=== PATIENT | male | born 1975 | race African-American/Black ===

== ENCOUNTER 2024-12-13 00:04 | Observation (INO) ==
--- NOTE | 2024-12-13 00:39 | Emergency Department Note ---
HPI - Abdominal Pain General Chief Complaint: Abdominal Pain Stated Complaint: UPPER ABDOMINAL PAIN Source: patient and medical record Mode of arrival: walk-in Limitations: no limitations History of Present Illness HPI narrative: A 49-year-old came into the ER [place] stating that he is having for the last 4 days with increased abdominal pain very similar to when he had pancreatitis in the past. Helical gallbladder removed secondary to the pancreatitis does have issues with his blood pressure and lipids. States he takes his medications every day without fail. Patient [place] any fever, vomiting, bowel habit changes no known ill contacts no suspicious foods patient does admit having nausea especially when the pain is severe. Patient reports his epigastric area when asked where he hurts was pain he will radiate out for the last 4 days he rated as a 9 out of 10 but currently is a 7 out of 10. Related Data Home Medications Medication Instructions Recorded Confirmed glipizide 10 mg tablet 10 mg PO BID 04/13/24 05/13/24 insulin glargine-yfgn 100 unit/mL 40 unit subcut DAILY 04/13/24 05/13/24 (3 mL) subcutaneous pen metformin 850 mg tablet 850 mg PO BID 04/13/24 05/13/24 olmesartan 20 mg tablet 20 mg PO DAILY 04/13/24 05/13/24 Previous Rx's Medication Instructions Recorded atorvastatin 10 mg tablet 10 mg PO DAILY dm #30 tabs 05/15/24 famotidine 40 mg tablet (Pepcid) 40 mg PO BID gerd #60 tabs 05/15/24 losartan 50 mg tablet 50 mg PO DAILY dm/htn #30 tabs 05/15/24 Allergies Allergy/AdvReac Type Severity Reaction Status Date / Time No Known Drug Allergies [facility]ergy Verified 12/13/24 00[facility]38 [facility] Medical History Acute pancreatitis GERD (gastroesophageal reflux disease) Sleep apnea Hypertension Diabetes Surgical History History of appendectomy Social History (Updated 10/01/24 @ 12:18 by Isabella Venegas APRN) Smoking status: current some day smoker Within the past year, how often did you have a drink containing alcohol: never Within the past year, how many standard drinks containing alcohol did you have on a typical day: 1 or 2 Within the past year, how often did you have six or more drinks on one occasion: never Total score: 0 Score interpretation: A score less than 4 is consistent with normal alcohol consumption. Non-prescribed substance use: cannabis (any form) Problems where you live: no known problems In the past 12 months, utilities in danger of being shut off: no In past 12 months, lack of transportation kept you from medical appts, meetings, work, or getting things needed for daily living: No Highest level of school completed/degree received: decline to answer Little interest or pleasure in doing things: not at all Feeling down, depressed, or hopeless: not at all Feel stressed/tense/nervous/anxious/difficulty sleeping: decline to answer Exam Exam: Patient in fowlers position at upon entering room for exam. Constitutional: normal general appearance, distress noted (moderate), abnormal body habitus (obese), no limitations and alert Vital Signs - 24 hr 12/13/24 00:15 12/13/24 01:15 12/13/24 02:09 Temperature 98.3 F 98.3 F 98.3 F Pulse Rate 86 84 88 Respiratory Rate 20 19 18 Blood Pressure 175/92 184/97 180/82 Pulse Oximetry 96 97 96 Oxygen Delivery Me thod Room Air Room Air Room Air 12/13/24 03:00 Temperature 98.3 F Pulse Rate 83 Respiratory Rate 18 Blood Pressure 203/99 Pulse Oximetry 95 [facility] Vital Signs - 24 hr 05/14/24 16:00 05/14/24 20:00 05/15/24 00:00 Temperature 97.8 F 98.0 F 97.9 F Pulse Rate [Right] 73 67 69 Respiratory Rate 20 20 21 Blood Pressure Blood Pressure [Le ft Arm] 159/78 181/105 168/89 Pulse Oximetry 96 97 97 Oxygen Delivery Me thod Room Air Room Air Room Air 05/15/24 04:00 05/15/24 08:00 05/15/24 09:49 Temperature 97.8 F 97.8 F Pulse Rate [Right] 75 74 Respiratory Rate 20 16 Blood Pressure 162/86 Blood Pressure [Le ft Arm] 168/77 162/86 Pulse Oximetry 95 95 [facility] Room Air 05/15/24 12:00 Temperature 97.6 F Pulse Rate [Right] 70 Respiratory Rate 16 Blood Pressure Blood Pressure [Le ft Arm] 150/70 Pulse Oximetry 96 Oxygen Delivery Me thod HENMT: normocephalic, head/scalp atraumatic, hearing grossly normal bilaterally, external ears normal, TMs abnormal and oral mucous membranes normal Eyes: PERRL, EOMs intact bilaterally, conjunctivae normal, no scleral icterus, papilledema noted and alignment normal Neck/C-Spine: visual inspection normal, trachea midline, cervical spine nontender, cervical full ROM noted, supple, no meningeal signs and thyroid normal Lymph: no lymphadenopathy noted and no lymphedema noted Chest: inspection of chest normal and palpation of chest normal Respiratory: breath sounds unequal (Diminished bases), normal respiratory effort, clear to auscultation bilaterally, no wheezes, no rales, no retractions and no use of accessory muscles Cardiovascular: normal heart rate noted, regular rhythm noted, no gallop, no rub, no murmur, no JVD, no clicks, peripheral pulses 2+ throughout and no bruits noted Gastrointestinal: abdomen normal to inspection, abdomen soft to palpation, nontender to palpation, nondistended, normoactive bowel sounds, hepatosplenomegaly noted, no masses, no pulsatile mass, no ascites and no hernia Genitourinary: no CVA tenderness and bladder normal to palpation Back/Pelvis: no thoracic spine tenderness, no lumbar spine tenderness, thoracic spine ROM abnormal and lumbar spine ROM abnormal Extremities: normal to palpation, no tenderness, full ROM, no joint enlargement and no deformity Neurology: crimper assembler II-XII intact, no movement abnormality noted, no focal motor deficit noted, no sensory deficits noted, deep tendon reflexes 2+ bilaterally, gait abnormality noted (antalgic), speech normal, coordination normal, no pronator drift noted, no fasciculations noted and GCS normal Psychiatry: Mental Status Exam documented within this Exam's Psych section mental status grossly normal, oriented x3, thought process normal, cooperative, affect normal, psychomotor activity normal and memory normal Feel stressed/tense/nervous/anxious/difficulty sleeping: decline to answer Skin: skin color abnormal, no rash, no lesions, no ecchymosis noted, no wounds, no lacerations, skin turgor abnormal Reports (tenting), no jaundice, no petechiae, no mottling, nails abnormality noted and alopecia noted Course Course Hospital Course: Patient's pain improved over hospitalization went from a 7 out of 10 and her to a 4-5 out of 10 with medication. Patient remained comfortable although did require second dose of morphine when the pain creased around 4 AM patient tolerated fluids very well and agreed to go to the floor for further hydration and pain medications as warranted Vital Signs Vital signs: Vital Signs Temperature 98.3 F 12/13/24 00:15 Pulse Rate 86 12/13/24 00:15 Respiratory Rate 20 12/13/24 00:15 Blood Pressure 175/92 12/13/24 00:15 Pulse Oximetry 96 12/13/24 00:15 Oxygen Delivery Method Room Air 12/13/24 00:15 Temperature 98.3 F 12/13/24 03:00 Pulse Rate 83 12/13/24 03:00 Respiratory Rate 18 12/13/24 03:00 Blood Pressure 203/99 12/13/24 03:00 Pulse Oximetry 95 12/13/24 03:00 Oxygen Delivery Method Room Air 12/13/24 03:00 MDM - Abdominal Pain MDM Narrative Medical decision making narrative: Ileus, calculus of kidney, constipation, diverticulitis, gastroenteritis, pancreatitis, abdominal pain, UTI Differential Diagnosis Differential diagnosis: Likely abdominal pain, calculus of kidney, constipation, diverticulitis, gastroenteritis, pancreatitis and small bowel obstruction Lab Data Attestation: I reviewed the patient's lab results. Labs: Lab Results 12/13/24 12/13/24 Range/Units 00:25 02:45 WBC 10.0 H (3.7-9.6) K/uL RBC 5.3 (4.40-5.80) M/uL Hgb 14.2 (14.0-17.4) gm/dL Hct 43.5 (41.3-50.1) % MCV 82.9 (81.9-96.5) fl MCH 27.1 L (27.6-33.7) pg MCHC 32.7 L (33.0-35.7) g/dl RDW 15.4 H (11.0-14.8) % Plt Count 272 (142-355) K/uL MPV 8.8 (6.0-10.4) fl Gran % 54.8 (49.1-73.1) % Lymph % (Auto) 26.5 (17.6-39.05) % [place] % (Auto) 13.8 H (4.5-10.7) % Eos % (Auto) 3.7 (0.0-4.0) % Baso % (Auto) 1.2 (0.0-1.3) Lymph # (Auto) 2.6 (0.8-2.9) [place] # (Auto) 1.4 H (0.2-0.8) Eos # (Auto) 0.4 H (0.0-0.3) Baso # (Auto) 0.1 (0.0-0.1) Absolute Gran (auto) 5.5 (2.0-6.2) Sodium 137 (136-145) mmol/L Potassium 4.3 (3.6-5.2) mmol/L Chloride 103.0 (98-107) mmol/L Carbon Dioxide 30 (21-32) mmol/L Anion Gap 4.0 (4-14) mEq/L BUN 13 (7-18) mg/dL Creatinine 1.4 H (0.6-1.3) mg/dL Estimated GFR 62.4 (>59.9) Glucose 205 H (70-110) mg/dL Lactic Acid 1.6 H (0.27-1.43) mmol/L Calcium 8.8 (8.5-10.1) mg/dL Total Bilirubin 0.28 (0.0-1.0) mg/dL AST 32 (15-37) U/L ALT 45 (30-65) U/L Alkaline Phosphatase 93 (50-136) U/L Troponin I High Sens 7.20 (4.0-60.4) ng/L Total Protein 8.2 (6.4-8.2) g/dL Albumin 3.5 (3.4-5.0) g/dL Lipase 237.0 H (16.0-77.0) U/L Urine Color Yellow (STRAW/YELL.) Urine Appearance Clear (CLEAR) Ur Specific [place] 1.015 (1.001-1.035) Urine Protein Trace (NEGATIVE) Urine Glucose (UA) 2+ (NORMAL) Urine Ketones Negative (NEGATIVE) Urine Occult Blood Negative (NEG - TRACE) Urine Nitrite Negative (NEGATIVE) Urine Bilirubin Negative (NEGATIVE) Urine Urobilinogen Normal (NORMAL) Ur Leukocyte Esterase Negative (NEGATIVE) Urine RBC 0 - 2 (0 - 5) Urine WBC Negative ( 0 - 5) Ur Squamous Epith Cells Negative (Negative) Urine Bacteria Negative (Negative) Fluid pH 7.0 (5 - 9) Urine Opiates Screen Neg. (NEGATIVE) Urine Methadone Screen Neg. (NEGATIVE) Barbiturate Screen Neg. (NEGATIVE) Ur Phencyclidine Scrn Neg. (NEGATIVE) Amphetamines Screen Neg. (NEGATIVE) U Benzodiazepines Scrn Neg. (NEGATIVE) Urine Cocaine Screen Neg. (NEGATIVE) U Marijuana (THC) Screen Pos. (NEGATIVE) ECG Data Attestation: I have reviewed the pertinent ECG results. Prior ECG tracings: available for review Interpretation: EKG-sinus rhythm, rate 85, RR 74, SD 155, early repolarization pattern Discharge Plan Discharge Patient Disposition: Admitted As Observation Condition: Stable Chief Complaint: Abdominal Pain Clinical Impression: Hypertension, GERD (gastroesophageal reflux disease), Pancreatitis, Abdominal pain Prescriptions: No Action losartan 50 mg tablet 50 mg PO DAILY Qty: 30 0RF atorvastatin 10 mg tablet 10 mg PO DAILY Qty: 30 0RF famotidine [Pepcid] 40 mg tablet 40 mg PO BID Qty: 60 0RF glipizide 10 mg tablet 10 mg PO BID Patient Comments: TAKE ONE TABLET BY MOUTH TWICE DAILY insulin glargine-yfgn 100 unit/mL (3 mL) insulin pen 40 unit SUBCUT DAILY Patient Comments: INJECT 40 UNITS SUBCUTANEOUSLY DAILY metformin 850 mg tablet 850 mg PO BID Patient Comments: TAKE ONE TABLET BY MOUTH TWICE DAILY WITH A MEAL olmesartan 20 mg tablet 20 mg PO DAILY Patient Comments: TAKE ONE TABLET BY MOUTH DAILY Print Language: Divehi Referrals: Ty Hedrick MD [Primary Care Provider] - Time of Disposition: 05:24
[2024-12-13] MEDS ORDERED: 0.9 % SODIUM CHLORIDE 1000 ML 1,000 ML IV SCH (00:45)
[2024-12-13] MEDS: MORPHINE SULFATE 2 MG/ML CARTRIDGE IV ONE ×2 (01:01→04:57)
[2024-12-13] MEDS: ONDANSETRON HCL/PF 4 MG/2 ML VIAL IVP ONE (01:01)
[2024-12-13] MEDS: 0.9 % SODIUM CHLORIDE 1000 ML 1,000 ML IV SCH ×2 (01:05→11:33)
[2024-12-13] MEDS: 0.9 % SODIUM CHLORIDE 1000 ML 1,000 ML IV ONE (01:18)
[2024-12-13 01:38] LABS: Potassium 4.3 mmol/L (3.6-5.2)
[2024-12-13 01:48] LABS: Basophils #(Absolute) Auto 0.1 (0.0-0.1); Basophils%(Percent) Auto 1.2 (0.0-1.3); Eosinophils#(Absolute)Auto 0.4 (0.0-0.3); Eosinophils%(Percent) Auto 3.7 % (0.0-4.0); Granulocytes % - Auto 54.8 % (49.1-73.1); Granulocytes#(Absolute)- Auto 5.5 (2.0-6.2); Hematocrit 43.5 % (41.3-50.1); Mean Corpuscular Volume 82.9 fl (81.9-96.5); Monocytes #(Absolute)- Auto 1.4 (0.2-0.8); Monocytes %(Percent)- Auto 13.8 % (4.5-10.7); Platelet Count 272 K/uL (142-355)
[2024-12-13 02:49] LABS: Specific Gravity Urine 1.015 (1.001-1.035); Urine Appearance CLEAR (CLEAR); Urine Blood NEGATIVE (NEG - TRACE); Urine Color YELLOW (STRAW/YELL.); Urine Urobilinogen Normal (NORMAL)
[2024-12-13 02:59] LABS: Amphetamine Screen Urine NEG. (NEGATIVE); Cannabinoid Screen Urine POS. (NEGATIVE); Cocaine Screen Urine NEG. (NEGATIVE); Methadone Screen Urine NEG. (NEGATIVE); Opiate Screen Urine NEG. (NEGATIVE)
[2024-12-13 03:00] LABS: Ur. Squamous Epithelial Cell Negative (Negative)
[2024-12-13] MEDS ORDERED: MORPHINE SULFATE 4 MG/ML CARTRIDGE ONE (07:58)
[2024-12-13] MEDS: MORPHINE SULFATE 4 MG/ML CARTRIDGE IVP ONE (08:06)
[2024-12-13 10:38] LABS: Basophils #(Absolute) Auto 0.1 (0.0-0.1); Basophils%(Percent) Auto 1.1 (0.0-1.3); Eosinophils#(Absolute)Auto 0.4 (0.0-0.3); Eosinophils%(Percent) Auto 4.4 % (0.0-4.0); Granulocytes#(Absolute)- Auto 4.5 (2.0-6.2); Hematocrit 43.6 % (41.3-50.1); Mean Corpuscular Volume 83.3 fl (81.9-96.5); Monocytes #(Absolute)- Auto 1.1 (0.2-0.8); Monocytes %(Percent)- Auto 13.4 % (4.5-10.7); Platelet Count 241 K/uL (142-355); White Blood Count 8.4 K/uL (3.7-9.6)
[2024-12-13 10:54] LABS: Potassium 4.2 mmol/L (3.6-5.2)
[2024-12-13] MEDS ORDERED: ONDANSETRON HCL/PF 4 MG/2 ML VIAL INJ PRN (11:00)
[2024-12-13] MEDS: ENOXAPARIN SODIUM 40 MG/0.4 ML SYRINGE SUBQ SCH (11:34)
[2024-12-13] MEDS: PANTOPRAZOLE SODIUM 40 MG VIAL IVP SCH (11:34)
--- NOTE | 2024-12-13 12:22 | History & Physical Report ---
H&P: HPI History of Present Illness Chief complaint: PANCREATITIS,DEHYDRATION,ABDOMINAL PAIN Narrative: Mr. Delgado was admitted on 12/12/24 from the ED with the complaint of bilater upper quadrant abdominal pain. Patient does have history of diabetes as well as acute exacerbations of pancreatitis. CBC CMP within normal limits. Lipase on admit was 237 down to 79 this morning. He does report compliance with medication at home. Currently NPO will advance diet as tolerated Review of Systems Status of ROS 10 or more systems reviewed and unremark able except as noted in history and below Constitutional Denies: fever, chills, change in weight, fatigue or malaise Eyes Denies: change in vision, blurry vision, blind spots, eye discomfort or eye discharge Ears, nose, mouth, and throat Denies: throat pain, neck pain, throat swelling, difficulty swallowing, hoarseness or swelling of lips/tongue Cardiovascular Denies: chest pain, palpitations, edema, swelling of feet/ankles, lightheadedness or shortness of breath with exertion Respiratory Denies: shortness of breath, cough, wheezing, stridor, pain on inspiration, change in phlegm color or coughing up blood Gastrointestinal Reports: abdominal pain and nausea; Denies: vomiting, coffee grounds in vomit, heartburn, diarrhea, constipation, bloating, belching or painful bowel movements Genitourinary Denies: painful urination, urinary frequency, urinary urgency, blood in urine, testicular pain or scrotal swelling Musculoskeletal Denies: back pain, neck pain, extremity pain or extremity swelling Integumentary/Breast Denies: rash, skin tenderness, non-healing lesion or changes in skin color Neurological Denies: headache, numbness in extremities, weakness in extremities, lack of coordination, dizziness, vertigo or confusion Psychiatric Denies: anxiety, irritability, suicidal ideation or homicidal ideation Endocrine Reports: excessive thirst; Denies: fatigue, excessive sweating or flushing Hematologic/Lymphatic Denies: easy bruising, easy bleeding or enlarged lymph nodes Allergic/Immunologic Denies: hives, throat swelling, tongue swelling or facial swelling PFSH PFSH Medical History (Updated 12/13/24 @ 12:28 by Jensen Mcconnell NP) Acute pancreatitis GERD (gastroesophageal reflux disease) Sleep apnea Hypertension Diabetes Surgical History (Updated 12/13/24 @ 12:25 by Jensen Mcconnell NP) Hx laparoscopic cholecystectomy History of appendectomy Social History (Updated 10/01/24 @ 12:18 by Isabella Venegas APRN) Smoking status: current some day smoker Within the past year, how often did you have a drink containing alcohol: never Within the past year, how many standard drinks containing alcohol did you have on a typical day: 1 or 2 Within the past year, how often did you have six or more drinks on one occasion: never Total score: 0 Score interpretation: A score less than 4 is consistent with normal alcohol consumption. Non-prescribed substance use: cannabis (any form) Problems where you live: no known problems In the past 12 months, utilities in danger of being shut off: no In past 12 months, lack of transportation kept you from medical appts, meetings, work, or getting things needed for daily living: No Highest level of school completed/degree received: high school Little interest or pleasure in doing things: not at all Feeling down, depressed, or hopeless: not at all Feel stressed/tense/nervous/anxious/difficulty sleeping: decline to answer Meds Home Medications and Allergies Home Medications Medication Instructions Recorded Confirmed Type glipizide 10 mg tablet 10 mg PO BID 04/13/24 12/13/24 History insulin glargine-yfgn 100 unit/mL 40 unit subcut DAILY 04/13/24 12/13/24 History (3 mL) subcutaneous pen metformin 850 mg tablet 850 mg PO BID 04/13/24 12/13/24 History olmesartan 20 mg tablet 20 mg PO DAILY 04/13/24 12/13/24 History atorvastatin 10 mg tablet 10 mg PO DAILY dm #30 tabs 05/15/24 12/13/24 Rx famotidine 40 mg tablet (Pepcid) 40 mg PO BID gerd #60 tabs 05/15/24 12/13/24 Rx losartan 50 mg tablet 50 mg PO DAILY dm/htn #30 tabs 05/15/24 12/13/24 Rx gabapentin 300 mg capsule 300 mg PO NIGHTLY 12/13/24 12/13/24 History pen needle, diabetic 31 gauge x 12/13/24 12/13/24 History 5/16" (Sure Comfort Pen Needle) Allergies Allergy/AdvReac Type Severity Reaction Status Date / Time No Known Drug Allergies Allergy Verified 12/13/24 00:38 Exam Constitutional: normal general appearance and no apparent distress Vital Signs - 24 hr 12/13/24 00:15 12/13/24 01:15 12/13/24 02:09 Temperature 98.3 F 98.3 F 98.3 F Pulse Rate 86 84 88 Pulse Rate [Left B rachial] Respiratory Rate 20 19 18 Blood Pressure 175/92 184/97 180/82 Blood Pressure [Le ft Arm] Pulse Oximetry 96 97 96 Oxygen Delivery Me thod Room Air Room Air Room Air 12/13/24 03:00 12/13/24 04:00 12/13/24 05:00 Temperature 98.3 F 98.3 F Pulse Rate 83 83 80 Pulse Rate [Left B rachial] Respiratory Rate 18 15 18 Blood Pressure 203/99 152/76 163/78 Blood Pressure [Le ft Arm] Pulse Oximetry 95 95 95 Oxygen Delivery Me thod Room Air Room Air Room Air 12/13/24 08:07 12/13/24 10:01 Temperature 97.7 F Pulse Rate 80 Pulse Rate [Left B rachial] 74 Respiratory Rate 20 Blood Pressure 163/78 Blood Pressure [Le ft Arm] 168/72 Pulse Oximetry 94 L Oxygen Delivery Oh thod Room Air HENMT: normocephalic, head/scalp atraumatic, hearing grossly normal bilaterally and external ears normal Eyes: PERRL, EOMs intact bilaterally, conjunctivae normal, no scleral icterus, no papilledema and normal visual brown by confrontation Neck/C-Spine: visual inspection normal, trachea midline, cervical spine nontender, cervical full ROM noted and supple Lymph: no lymphadenopathy noted and no lymphedema noted Chest: inspection of chest normal Respiratory: breath sounds equal bilaterally, normal respiratory effort and clear to auscultation bilaterally Cardiovascular: normal heart rate noted and regular rhythm noted Gastrointestinal: abdomen normal to inspection and abdomen soft to palpation mild tenderness BL upper quads Genitourinary: no CVA tenderness and bladder normal to palpation Back/Pelvis: spine normal to inspection, no thoracic spine tenderness, no lumbar spine tenderness, thoracic spine ROM normal and lumbar spine ROM normal Extremities: normal to inspection, normal to palpation, no tenderness, full ROM, no joint enlargement and no deformity Neurology: manager sas II-XII intact, no movement abnormality noted, no focal motor deficit noted, no sensory deficits noted, deep tendon reflexes 2+ bilaterally, gait normal, speech normal, coordination normal, no pronator drift noted, no fasciculations noted and GCS normal Psychiatry: oriented x3, thought process normal, cooperative and affect normal Skin: skin color normal Assessment and Plan Assessment and Plan (1) Acute pancreatitis: Assessment and Plan: NPO status NS @150ml/hr Trend enzymes Qualifiers: Pancreatitis type: unspecified pancreatitis type Acute pancreatitis complication: no infection or necrosis Qualified Code(s): K85.90 - Acute pancreatitis without necrosis or infection, unspecified Code(s): K85.90 - Acute pancreatitis without necrosis or infection, unspecified (2) Diabetes mellitus type 2 with complications: Code(s): E11.8 - Type 2 diabetes mellitus with unspecified complications Plan Accuchecks AC HS Results Labs Labs: CBC 12/13/24 12/13/24 Range/Units 00:25 10:28 WBC 10.0 H 8.4 (3.7-9.6) K/uL RBC 5.3 5.2 (4.40-5.80) M/uL Hgb 14.2 14.3 (14.0-17.4) gm/dL Hct 43.5 43.6 (41.3-50.1) % Plt Count 272 241 (142-355) K/uL Gran % 54.8 54.0 (49.1-73.1) % Lymph % (Auto) 26.5 27.1 (17.6-39.05) % [place] % (Auto) 13.8 H 13.4 H (4.5-10.7) % Eos % (Auto) 3.7 4.4 H (0.0-4.0) % Baso % (Auto) 1.2 1.1 (0.0-1.3) Lymph # (Auto) 2.6 2.3 (0.8-2.9) [place] # (Auto) 1.4 H 1.1 H (0.2-0.8) Eos # (Auto) 0.4 H 0.4 H (0.0-0.3) Baso # (Auto) 0.1 0.1 (0.0-0.1) Absolute Gran (auto) 5.5 4.5 (2.0-6.2) CMP 12/13/24 12/13/24 00:25 10:28 Sodium 137 137 Potassium 4.3 4.2 Chloride 103.0 103.0 Carbon Dioxide 30 30 BUN 13 9 Creatinine 1.4 H 1.1 Glucose 205 H 135 H Calcium 8.8 8.1 L Liver Function 12/13/24 12/13/24 Range/Units 00:25 10:28 Total Bilirubin 0.28 0.32 (0.0-1.0) mg/dL AST 32 24 (15-37) U/L ALT 45 40 (30-65) U/L Alkaline Phosphatase 93 89 (50-136) U/L Albumin 3.5 3.1 L (3.4-5.0) g/dL Urine 12/13/24 02:45 Urine Color Yellow Urine Appearance Clear Ur Specific [place] 1.015 Urine Protein Trace Urine Glucose (UA) 2+
[2024-12-13] MEDS: MORPHINE SULFATE 2 MG/ML CARTRIDGE IV PRN (15:54)
[2024-12-13] MEDS: LOSARTAN POTASSIUM 50 MG TABLET PO SCH (20:59)
[2024-12-14 04:24] VITALS: RESP 19
[2024-12-14 08:11] LABS: Potassium 4.2 mmol/L (3.6-5.2)
--- NOTE | 2024-12-14 08:17 | Discharge Summary ---
DS: Providers Provider Date of admission: 12/13/24 05:30 Primary care physician: Ty Hedrick MD DS: Diagnosis Discharge Diagnosis (1) Acute pancreatitis: Qualifiers: Acute pancreatitis complication: no infection or necrosis Pancreatitis type: unspecified pancreatitis type Qualified Code(s): K85.90 - Acute pancreatitis without necrosis or infection, unspecified (2) Diabetes mellitus type 2 with complications: DS: Summary Hospital Course Hospital Course: Mr. Delgado was admitted on 12/12/24 from the ED with the complaint of bilateral upper quadrant abdominal pain. Patient does have history of diabetes as well as acute on chronic exacerbations of pancreatitis. CBC CMP within normal limits during his stay. Lipase on admit was 237 and did trend to normal. Diet was advanced to regular and he did not require further pain management. Patient was discharged home on 12/14/24. Time spent discussing smoking cessation with patient: more than 10 minutes Status at Discharge Overall status at discharge: patient is back to baseline Time Spent with Patient Time attestation: Total time spent providing and/or coordinating discharge services: Time spent: greater than 30 minutes Exam Constitutional: normal general appearance and no apparent distress Vital Signs - 24 hr 12/13/24 08:23 12/13/24 10:01 12/13/24 12:00 Temperature 97.7 F 98.2 F Pulse Rate [Left B rachial] 74 70 Respiratory Rate 20 19 Blood Pressure [Le ft Arm] 168/72 173/99 Pulse Oximetry 94 L 96 Oxygen Delivery Me thod Room Air Room Air Room Air 12/13/24 16:00 12/13/24 20:00 12/14/24 00:00 Temperature 97.4 F L 98.2 F 98.6 F Pulse Rate [Left B rachial] 70 77 78 Respiratory Rate 19 17 20 Blood Pressure [Le ft Arm] 160/80 168/91 173/77 Pulse Oximetry 94 L 95 96 Oxygen Delivery Me thod Room Air Room Air Room Air 12/14/24 04:23 Temperature 98.0 F Pulse Rate [Left B rachial] 89 Respiratory Rate 19 Blood Pressure [Le ft Arm] 184/70 Pulse Oximetry 93 L Oxygen Delivery Me thod Room Air HENMT: normocephalic, head/scalp atraumatic, hearing grossly normal bilaterally and external ears normal Eyes: PERRL, EOMs intact bilaterally, conjunctivae normal, no scleral icterus, no papilledema and normal visual brown by confrontation Neck/C-Spine: visual inspection normal, trachea midline, cervical spine nontender, cervical full ROM noted and supple Lymph: no lymphadenopathy noted and no lymphedema noted Chest: inspection of chest normal Respiratory: breath sounds equal bilaterally, normal respiratory effort and clear to auscultation bilaterally Cardiovascular: normal heart rate noted and regular rhythm noted Gastrointestinal: abdomen normal to inspection, abdomen soft to palpation and nontender to palpation Genitourinary: no CVA tenderness and bladder normal to palpation Back/Pelvis: spine normal to inspection, no thoracic spine tenderness, no lumbar spine tenderness, thoracic spine ROM normal and lumbar spine ROM normal Extremities: normal to inspection, normal to palpation, no tenderness, full ROM, no joint enlargement and no deformity Neurology: student assistant II-XII intact, no movement abnormality noted, no focal motor deficit noted, no sensory deficits noted, deep tendon reflexes 2+ bilaterally, gait normal, speech normal, coordination normal, no pronator drift noted, no fasciculations noted and GCS normal Psychiatry: oriented x3, thought process normal, cooperative and affect normal Skin: skin color normal DS: Data Data Completed and Pending Labs on day of discharge: Labs from last 24 hours 12/14/24 12/14/24 12/13/24 07:11 05:20 10:28 WBC 8.4 RBC 5.2 Hgb 14.3 Hct 43.6 MCV 83.3 MCH 27.2 L MCHC 32.7 L RDW 15.2 H Plt Count 241 MPV 7.9 Gran % 54.0 Lymph % (Auto) 27.1 King % (Auto) 13.4 H Eos % (Auto) 4.4 H Baso % (Auto) 1.1 Lymph # (Auto) 2.3 King # (Auto) 1.1 H Eos # (Auto) 0.4 H Baso # (Auto) 0.1 Absolute Gran (auto) 4.5 Sodium 135 L 137 Potassium 4.2 4.2 Chloride 101.0 103.0 Carbon Dioxide 25 30 Anion Gap 9.0 4.0 BUN 8 9 Creatinine 1.1 1.1 Estimated GFR 83.3 83.3 Glucose 104 135 H Calcium 8.6 8.1 L Magnesium 2.0 Total Bilirubin 0.32 AST 24 ALT 40 Alkaline Phosphatase 89 Troponin I High Sens 9.50 B-Natriuretic Peptide 9.2 Total Protein 7.6 Albumin 3.1 L Triglycerides 54 Cholesterol 113 LDL Cholesterol 66.0 VLDL Cholesterol, Calc 11 HDL Cholesterol 40 LDL/HDL Ratio 1.7 Cholesterol/HDL Ratio 2 Amylase 63 Lipase 50.0 76.0 Preliminary micro results at discharge 12/13/24 05:35 Blood Culture - Preliminary Blood - Venous Draw (Peripheral) 12/13/24 05:40 Blood Culture - Preliminary Blood - Venous Draw (Peripheral) Discharge Plan Discharge Disposition: Home, Self-Care Condition: Stable Discharge Medications: Continued losartan 50 mg tablet 50 mg PO DAILY Qty: 30 0RF atorvastatin 10 mg tablet 10 mg PO DAILY Qty: 30 0RF famotidine [Pepcid] 40 mg tablet 40 mg PO BID Qty: 60 0RF glipizide 10 mg tablet 10 mg PO BID Patient Comments: TAKE ONE TABLET BY MOUTH TWICE DAILY insulin glargine-yfgn 100 unit/mL (3 mL) insulin pen 40 unit SUBCUT DAILY Patient Comments: INJECT 40 UNITS SUBCUTANEOUSLY DAILY metformin 850 mg tablet 850 mg PO BID Patient Comments: TAKE ONE TABLET BY MOUTH TWICE DAILY WITH A MEAL olmesartan 20 mg tablet 20 mg PO DAILY Patient Comments: TAKE ONE TABLET BY MOUTH DAILY gabapentin 300 mg capsule 300 mg PO NIGHTLY Patient Comments: TAKE ONE CAPSULE BY MOUTH AT BEDTIME (DME) pen needle, diabetic [Sure Comfort Pen Needle] 31 gauge x 5/16" needle MISCELLANEOUS Patient Comments: USE daily Discharge Orders: Discharge Order (Routine); Ordered 12/14/24 Ordered By: Jensen Mcconnell Activity: increase activity as tolerated Diet Detail: Diabetic Interventions: Discharge Assessment Last Done: 12/14/24 08:30 MED/SURG & ICU Observation Charge Sheet Last Done: 12/14/24 08:32 Patient Instructions: Pancreatitis (DC) Forms: Portal/Health Info Access Inst Follow-Ups: Ty Hedrick MD [Primary Care Provider] - 12/20/24 11:00 am Discharge Date/Time: 12/14/24 09:45
[2024-12-14 08:19] LABS: Basophils #(Absolute) Auto 0.1 (0.0-0.1); Basophils%(Percent) Auto 0.7 (0.0-1.3); Eosinophils#(Absolute)Auto 0.4 (0.0-0.3); Eosinophils%(Percent) Auto 4.5 % (0.0-4.0); Granulocytes#(Absolute)- Auto 4.6 (2.0-6.2); Hematocrit 44.5 % (41.3-50.1); Mean Corpuscular Volume 82.6 fl (81.9-96.5); Monocytes %(Percent)- Auto 11.9 % (4.5-10.7); Platelet Count 256 K/uL (142-355); White Blood Count 8.5 K/uL (3.7-9.6)
[2024-12-14 08:31] VITALS: BP 140/80; PULSE 80; TEMP 97.9
== END 2024-12-14 09:45 | disposition home or self-care (01) ==
LOC: MS 00:04 → ED 00:04 → MS 08:10
PROVIDERS: ADMIT Family Medicine; ATTEND Nurse Practitioner
DX: E86.0 Dehydration; K21.9 Gastro-esophageal reflux disease without esophagitis; Z79.899 Other long term (current) drug therapy; K85.90 Acute pancreatitis without necrosis or infection, unspecified; Z79.84 Long term (current) use of oral hypoglycemic drugs; E11.8 Type 2 diabetes mellitus with unspecified complications; G47.30 Sleep apnea, unspecified; I10 Essential (primary) hypertension; F17.200 Nicotine dependence, unspecified, uncomplicated; Z79.4 Long term (current) use of insulin

== ENCOUNTER 2025-02-22 21:49 | Observation (INO) ==
[2025-02-22] MEDS ORDERED: 0.9 % SODIUM CHLORIDE 1000 ML 1,000 ML IV SCH (22:15)
[2025-02-22] MEDS ORDERED: ONDANSETRON HCL/PF 4 MG/2 ML VIAL ONE (22:26)
[2025-02-22] MEDS ORDERED: MORPHINE SULFATE 2 MG/ML CARTRIDGE IV ONE (22:26)
[2025-02-22] MEDS: MORPHINE SULFATE 2 MG/ML CARTRIDGE IV ONE (22:28)
[2025-02-22] MEDS: ONDANSETRON HCL/PF 4 MG/2 ML VIAL IVP ONE (22:29)
[2025-02-22] MEDS: 0.9 % SODIUM CHLORIDE 1000 ML 1,000 ML IV ONE ×2 (22:43)
[2025-02-22 22:51] LABS: Basophils #(Absolute) Auto 0.1 (0.0-0.1); Eosinophils#(Absolute)Auto 0.4 (0.0-0.3); Eosinophils%(Percent) Auto 3.7 % (0.0-4.0); Granulocytes % - Auto 51.8 % (49.1-73.1); Granulocytes#(Absolute)- Auto 5.3 (2.0-6.2); Hematocrit 43.7 % (41.3-50.1); Mean Corpuscular Volume 83.3 fl (81.9-96.5); Monocytes #(Absolute)- Auto 1.3 (0.2-0.8); Monocytes %(Percent)- Auto 12.8 % (4.5-10.7); Platelet Count 285 K/uL (142-355); White Blood Count 10.2 K/uL (3.7-9.6)
[2025-02-22 23:01] LABS: Potassium 4.1 mmol/L (3.6-5.2)
[2025-02-22] MEDS ORDERED: 0.9 % SODIUM CHLORIDE MB+ 100 ML IV ONE (23:53)
[2025-02-22] MEDS ORDERED: PIPERACILLIN SODIUM/TAZOBACTAM 3.375 GM VIAL IV ONE (23:53)
[2025-02-22] MEDS: PIPERACILLIN/TAZOBACTAM 3.375 3.375 GM in 0.9 % SODIUM CHLORIDE MB+ 100 ML IV ONE (23:54)
--- NOTE | 2025-02-23 02:29 | Emergency Department Note ---
HPI - Abdominal Pain General Chief Complaint: Abdominal Pain Stated Complaint: stomach pains Source: patient Mode of arrival: walk-in Limitations: no limitations History of Present Illness HPI narrative: A 49-year-old who presented to the ER with chief complaint of abdominal pain specially left back and left upper quadrant pain. Denies any diarrhea denies any constipation. Denies any fever states that pain has been worsening since he was in the ER on 02/16/2025 and has not had an opportunity to follow-up with a PCP since leaving the facility then. Denies any alcohol states that he is working and that he has not been drinking very well despite trying secondary to the pain Related Data Home Medications Medication Instructions Recorded Confirmed glipizide 10 mg tablet 10 mg PO BIDWM 04/13/2402/05 insulin glargine-yfgn 100 unit/mL 40 unit subcut DAILY 04/13/24 12/13/24 (3 mL) subcutaneous pen metformin 850 mg tablet 850 mg PO BID 04/13/2412/13 gabapentin 300 mg capsule 300 mg PO NIGHTLY 12/13/24 0 12/13/24 pen needle, diabetic 31 gauge x 12/13/24 12/13/2401/19" (Sure Comfort Pen Needle) ondansetron HCl 4 mg tablet 4 mg PO Q8H PRN nausea and vomiting 02/23/25 02/23/25 sildenafil 100 mg tablet 100 mg PO DAILY PRN sexual a ctivity 02/23/25 02/23/25 Previous Rx's Medication Instructions Recorded atorvastatin 10 mg tablet 10 mg PO DAILY dm #30 tabs 0 05/15/24 famotidine 40 mg tablet (Pepcid) 40 mg PO BID gerd #60 tabs 05/15/24 losartan 50 mg tablet 50 mg PO DAILY dm/htn #30 ta bs 05/15/24 hydrocodone 5 mg-acetaminophen 300 1 tab PO Q6H PRN pa in (scale score 01/08/25 mg tablet 7-10) #12 tabs dicyclomine 10 mg capsule 10 mg PO QID #7 caps 5 Allergies Allergy/AdvReac Type Severity Reaction Status Date / Time No Known Drug Allergies Allergy Verified 02/22/25 22:24 Review of Systems Status of ROS 10 or more systems reviewed and unremark able except as noted in history and below Constitutional Reports: fatigue and malaise; Denies: fever, chills, change in weight, night sweats or change in sleep pattern Eyes Denies: change in vision, blurry vision, blind spots or light sensitivity Ears, nose, mouth, and throat Denies: throat pain, neck pain, throat swelling or difficulty swallowing Cardiovascular Reports: lightheadedness; Denies: chest pain, palpitations, edema, swelling of feet/ankles or shortness of breath with exertion Respiratory Denies: shortness of breath, cough, wheezing, stridor or pain on inspiration Gastrointestinal Reports: abdominal pain; Denies: nausea, vomiting, coffee grounds in vomit, heartburn, diarrhea, constipation or difficulty swallowing Genitourinary Denies: painful urination, urinary frequency, urinary urgency or blood in urine Musculoskeletal Reports: back pain; Denies: neck pain, extremity pain, extremity swelling, joint pain or limited range of motion Integumentary/Breast Denies: rash, itching, redness, skin pain or skin tenderness Neurological Reports: headache; Denies: numbness in extremities, weakness in extremities or lack of coordination Psychiatric Denies: anxiety, mood swings, panic attacks, change in sleep pattern, hopelessness, loss of interest, irritability, paranoia or memory loss Endocrine Denies: excessive urination, excessive thirst, fatigue, cold intolerance, excessive sweating, flushing or heat intolerance Hematologic/Lymphatic Denies: easy bruising, easy bleeding or enlarged lymph nodes Allergic/Immunologic Denies: hives, throat swelling, tongue swelling, facial swelling, wheezing or itchy eyes [facility] Medical History (Updated 02/23/25 @ 17:55 by Domitila Palma DO) Acute pancreatitis Hypoalbuminemia History of facial fracture GERD (gastroesophageal reflux disease) Sleep apnea Hypertension Diabetes Surgical History Hx laparoscopic cholecystectomy History of appendectomy Social History Smoking status: current every day smoker What tobacco products do you use: cigars Within the past year, how often did you have a drink containing alcohol: never Within the past year, how many standard drinks containing alcohol did you have on a typical day: 1 or 2 Within the past year, how often did you have six or more drinks on one occasion: never Total score: 0 Score interpretation: A score less than 4 is consistent with normal alcohol consumption. Non-prescribed substance use: cannabis (any form) Problems where you live: no known problems In the past 12 months, utilities in danger of being shut off: no In past 12 months, lack of transportation kept you from medical appts, meetings, work, or getting things needed for daily living: No Highest level of school completed/degree received: high school Little interest or pleasure in doing things: not at all Feeling down, depressed, or hopeless: not at all Feel stressed/tense/nervous/anxious/difficulty sleeping: not at all Exam Constitutional: abnormal general appearance, no apparent distress, abnormal body habitus (obese), no limitations and alert Vital Signs - 24 hr 02/22/25 22:00 02/22/25 23:00 02/23/25 00:00 Temperature 98.2 F 98.2 F Pulse Rate 74 69 66 Respiratory Rate 20 17 17 Blood Pressure 157/93 163/89 174/96 Pulse Oximetry 97 97 97 Oxygen Delivery Il thod Room Air Room Air Room Air 02/23/25 01:00 02/23/25 02:00 Temperature 98.2 F Pulse Rate 69 69 Respiratory Rate 17 17 Blood Pressure 161/87 168/96 Pulse Oximetry 98 [facility] Vital Signs - 24 hr 02/22/25 22:00 02/22/25 23:00 02/23/25 00:00 Temperature 98.2 F 98.2 F Pulse Rate 74 69 66 Pulse Rate [Left R adial] Respiratory Rate 20 17 17 Blood Pressure 157/93 163/89 174/96 Blood Pressure [Le ft Arm] Pulse Oximetry 97 97 97 [facility] Air Room Air 02/23/25 01:00 02/23/25 02:00 02/23/25 04:00 Temperature 98.2 F 97.3 F L Pulse Rate 69 69 Pulse Rate [Left R adial] 57 L Respiratory Rate 17 17 18 Blood Pressure 161/87 168/96 Blood Pressure [Le ft Arm] 141/63 Pulse Oximetry 98 95 95 [facility] Room Air Room Air 02/23/25 04:00 02/23/25 04:08 02/23/25 04:20 Temperature 98.2 F 98.2 F Pulse Rate 69 69 Pulse Rate [Left R adial] 57 L Respiratory Rate 17 18 17 Blood Pressure 168/96 168/96 Blood Pressure [Le ft Arm] Pulse Oximetry 95 95 95 Oxygen Delivery Me thod Room Air 02/23/25 08:00 02/23/25 12:00 02/23/25 12:00 Temperature 97.5 F L 97.4 F L 97.4 F L Pulse Rate Pulse Rate [Left R adial] 81 67 67 Respiratory Rate 18 19 19 Blood Pressure Blood Pressure [Le ft Arm] 145/87 132/74 132/74 Pulse Oximetry 97 100 100 Oxygen Delivery Me thod Room Air Room Air Room Air 02/23/25 16:00 Temperature 97.5 F L Pulse Rate Pulse Rate [Left R adial] 64 Respiratory Rate 16 Blood Pressure Blood Pressure [Le ft Arm] 190/91 Pulse Oximetry 97 Oxygen Delivery Me thod Room Air HENMT: normocephalic, head/scalp atraumatic, hearing grossly normal bilaterally, oral mucous membranes abnormal (dry), oropharynx normal and dentition normal Eyes: PERRL, EOMs intact bilaterally, conjunctivae normal, no scleral icterus, papilledema noted and periorbital findings normal Neck/C-Spine: abnormal to visual inspection, trachea midline, cervical spine nontender, abnormal cervical ROM noted, supple, no meningeal signs, thyroid normal and no carotid bruits Lymph: no lymphadenopathy noted and no lymphedema noted Chest: inspection of chest normal and palpation of chest normal Respiratory: breath sounds unequal, normal respiratory effort, clear to auscultation bilaterally, no wheezes, no rales and no retractions Cardiovascular: normal heart rate noted, regular rhythm noted, no gallop, no rub, no murmur, no JVD, no clicks and no bruits noted Gastrointestinal: abdomen abnormal to inspection, abdomen soft to palpation, tender to palpation, tender to percussion, nondistended, normoactive bowel sounds, hepatosplenomegaly noted, no masses, no pulsatile mass, no ascites and no hernia Epigastrium painful to palpation with hyperactive bowel sounds. Genitourinary: no CVA tenderness and bladder normal to palpation Back/Pelvis: spine abnormal to inspection, no thoracic spine tenderness, no lumbar spine tenderness, thoracic spine ROM abnormal and lumbar spine ROM abnormal Extremities: abnormal to inspection, normal to palpation, no tenderness, abnormal ROM noted, no joint enlargement and no deformity Neurology: ceramic plater II-XII intact, no movement abnormality noted, no focal motor deficit noted, sensory deficit noted, deep tendon reflexes 2+ bilaterally, gait normal, speech normal, coordination normal, no pronator drift noted and GCS normal Psychiatry: mental status grossly normal, oriented x3, thought process normal, cooperative, affect normal, psychomotor activity normal and memory normal Feel stressed/tense/nervous/anxious/difficulty sleeping: not at all Skin: skin color normal, no rash, no lesions, no ecchymosis noted, no wounds, no lacerations, skin turgor abnormal Reports (tenting), no jaundice, no petechiae, no mottling, nails normal and alopecia noted Course Reevaluation(s) Reevaluation #1: Patient's pain was controlled with morphine and Zofran in the ER patient remained n.p.o. tolerated the fluids pain went from a 10 out of 10 on admission down to a 2 out of 10 with the medications on board Vital Signs Vital signs: Vital Signs Temperature 98.2 F 02/22/25 22:00 Pulse Rate 74 02/22/25 22:00 Respiratory Rate 20 02/22/25 22:00 Blood Pressure 157/93 02/22/25 22:00 Pulse Oximetry 97 02/22/25 22:00 Oxygen Delivery Method Room Air 02/22/25 22:00 Temperature 97.5 F L 02/23/25 16:00 Pulse Rate 64 02/23/25 16:00 Respiratory Rate 16 02/23/25 16:00 Blood Pressure 190/91 02/23/25 16:00 Pulse Oximetry 97 02/23/25 16:00 Oxygen Delivery Method Room Air 02/23/25 16:00 MDM - Abdominal Pain MDM Narrative Medical decision making narrative: Patient having issue. For over a week no improvement since last visit to the ER. Abdominal pain, pancreatitis, constipation, Dr. Lambert, endometriosis, gastroenteritis, gastritis, small bowel obstruction, acute appendicitis, cholecystitis, Differential Diagnosis Differential diagnosis: Likely abdominal pain, acute appendicitis, calculus of kidney, constipation, diverticulitis, endometriosis, gastroenteritis, pancreatitis and small bowel obstruction Medical Records Attestation: I reviewed the patient's medical records. Lab Data Attestation: I reviewed the patient's lab results. Labs: Lab Results 02/22/25 02/23/25 Range/Units 22:30 02:30 WBC 10.2 H (3.7-9.6) K/uL RBC 5.2 (4.40-5.80) M/uL Hgb 14.4 (14.0-17.4) gm/dL Hct 43.7 (41.3-50.1) % MCV 83.3 (81.9-96.5) fl MCH 27.5 L (27.6-33.7) pg MCHC 33.0 (33.0-35.7) g/dl RDW 15.5 H (11.0-14.8) % Plt Count 285 (142-355) K/uL MPV 8.2 (6.0-10.4) fl Gran % 51.8 (49.1-73.1) % Lymph % (Auto) 30.7 (17.6-39.05) % Bee % (Auto) 12.8 H (4.5-10.7) % Eos % (Auto) 3.7 (0.0-4.0) % Baso % (Auto) 1.0 (0.0-1.3) Lymph # (Auto) 3.1 H (0.8-2.9) Bee # (Auto) 1.3 H (0.2-0.8) Eos # (Auto) 0.4 H (0.0-0.3) Baso # (Auto) 0.1 (0.0-0.1) Absolute Gran (auto) 5.3 (2.0-6.2) Sodium 140 (136-145) mmol/L Potassium 4.1 (3.6-5.2) mmol/L Chloride 106.0 (98-107) mmol/L Carbon Dioxide 22 (21-32) mmol/L Anion Gap 12.0 (4-14) mEq/L BUN 14 (7-18) mg/dL Creatinine 1.2 (0.6-1.3) mg/dL Estimated GFR 75.1 (>59.9) Glucose 174 H (70-110) mg/dL Calcium 8.2 L (8.5-10.1) mg/dL Total Bilirubin 0.40 (0.0-1.0) mg/dL AST 32 (15-37) U/L ALT 39 (30-65) U/L Alkaline Phosphatase 109 (50-136) U/L Troponin I High Sens 5.20 (4.0-60.4) ng/L Total Protein 7.9 (6.4-8.2) g/dL Albumin 3.3 L (3.4-5.0) g/dL Lipase 356.0 H (16.0-77.0) U/L Urine Color Yellow (STRAW/YELL.) Urine Appearance Clear (CLEAR) Ur Specific [place] 1.025 (1.001-1.035) Urine Protein Trace (NEGATIVE) Urine Glucose (UA) Normal (NORMAL) Urine Ketones Negative (NEGATIVE) Urine Occult Blood Negative (NEG - TRACE) Urine Nitrite Negative (NEGATIVE) Urine Bilirubin Negative (NEGATIVE) Urine Urobilinogen Normal (NORMAL) Ur Leukocyte Esterase Negative (NEGATIVE) Fluid pH 6.0 (5 - 9) Imaging Data Imaging ordered: CT scan - abdomen Attestation: I have reviewed the pertinent imaging results. Radiologist's impression: Ordering Physician: Lenny Waite NP Date of Service: 02/16/25 Procedure(s): CT abdomen pelvis w con Accession Number(s): [id number] cc: Lenny Waite [employer]; [facility] EXAM: CT ABDOMEN PELVIS W CON HISTORY: Abdominal pain COMPARISON: May 12, 2024 TECHNIQUE: Axial CT images of the abdomen and pelvis were obtained after the administration of IV contrast and reformatted into coronal and sagittal planes for further evaluation. Radiation dose: 1170.7 mGy-cm total DLP FINDINGS: Lung bases are clear. Stomach appears normal. Mild edema adjacent to the body of the pancreas. Status post cholecystectomy. Homogeneous enhancement of the kidneys without hydronephrosis or hydroureter. Unremarkable appearance of the urinary bladder. Imaged reproductive structures are unremarkable. Unremarkable appearance of the large and small bowel. Status post appendectomy. No pneumoperitoneum. No significant fluid collection. No adenopathy. No acute osseous abnormality. IMPRESSION: Mild edema adjacent to the body of the pancreas could represent acute pancreatitis. Recommend correlation with clinical lab values. ECG Data Attestation: I have reviewed the pertinent ECG results. Prior ECG tracings: available for review Interpretation: EKG-sinus rhythm, early repolarization, rate 64, RR 932, ND 156 Discharge Plan Discharge Patient Disposition: Admitted As Observation Condition: Improved Clinical Impression: Pancreatitis, Hypertension, Nicotine dependence, cigarettes, uncomplicated, Sleep apnea, GERD (gastroesophageal reflux disease), Hepatic steatosis Interventions: ED Discharge Assessment Last Done: 02/23/25 04:00 ED Discharge Vital Sign Last Done: 02/23/25 04:20 Emergency Department Charge Sheet Last Done: 02/22/25 23:00 Time of Disposition: 02:29 Discharge Date/Time: 02/23/25 04:00
[2025-02-23 02:42] LABS: Specific Gravity Urine 1.025 (1.001-1.035); Urine Appearance CLEAR (CLEAR); Urine Blood NEGATIVE (NEG - TRACE); Urine Color YELLOW (STRAW/YELL.); Urine Urobilinogen Normal (NORMAL)
[2025-02-23] MEDS ORDERED: DOCUSATE SODIUM 100 MG CAPSULE PO PRN (03:03)
[2025-02-23] MEDS ORDERED: MAGNESIUM, ALUMINUM HYDROXIDE 30 ML ORAL.SUSP PO PRN (03:03)
[2025-02-23] MEDS ORDERED: ONDANSETRON HCL/PF 4 MG/2 ML VIAL INJ PRN (03:03)
[2025-02-23] MEDS ORDERED: MORPHINE SULFATE 2 MG/ML CARTRIDGE IV ONE (03:42)
[2025-02-23] MEDS: MORPHINE SULFATE 2 MG/ML CARTRIDGE IV PRN (03:44)
[2025-02-23] MEDS: 0.9 % SODIUM CHLORIDE 1000 ML 1,000 ML IV SCH ×2 (04:10→04:11)
[2025-02-23 06:38] LABS: Potassium 3.8 mmol/L (3.6-5.2)
[2025-02-23] MEDS: ACETAMINOPHEN 500 MG TABLET PO PRN (06:38)
[2025-02-23] MEDS: ENOXAPARIN SODIUM 40 MG/0.4 ML SYRINGE SUBQ SCH (09:36)
[2025-02-23] MEDS: PANTOPRAZOLE SODIUM 40 MG TABLET.DR PO SCH (09:36)
--- NOTE | 2025-02-23 17:57 | History & Physical Report ---
H&P: HPI History of Present Illness Chief complaint: stomach pains Narrative: A 49-year-old who presented to the ER with chief complaint of abdominal pain specially left back and left upper quadrant pain. Denies any diarrhea denies any constipation. Denies any fever states that pain has been worsening since he was in the ER on 02/16/2025 and has not had an opportunity to follow-up with a PCP since leaving the facility then. Denies any alcohol states that he is working and that he has not been drinking very well despite trying secondary to the pain [facility] Medical History (Updated 02/23/25 @ 17:55 by Domitila Palma DO) Acute pancreatitis Hypoalbuminemia History of facial fracture GERD (gastroesophageal reflux disease) Sleep apnea Hypertension Diabetes Surgical History Hx laparoscopic cholecystectomy History of appendectomy Social History Smoking status: current every day smoker What tobacco products do you use: cigars Within the past year, how often did you have a drink containing alcohol: never Within the past year, how many standard drinks containing alcohol did you have on a typical day: 1 or 2 Within the past year, how often did you have six or more drinks on one occasion: never Total score: 0 Score interpretation: A score less than 4 is consistent with normal alcohol consumption. Non-prescribed substance use: cannabis (any form) Problems where you live: no known problems In the past 12 months, utilities in danger of being shut off: no In past 12 months, lack of transportation kept you from medical appts, meetings, work, or getting things needed for daily living: No Highest level of school completed/degree received: high school Little interest or pleasure in doing things: not at all Feeling down, depressed, or hopeless: not at all Feel stressed/tense/nervous/anxious/difficulty sleeping: not at all Meds Home Medications and Allergies Home Medications Medication Instructions Recorded Confirmed Type glipizide 10 mg tablet 10 mg PO BIDWM 04/13/2402/05 History insulin glargine-yfgn 100 unit/mL 40 unit subcut DAILY 04/13/24 12/13/24 History (3 mL) subcutaneous pen metformin 850 mg tablet 850 mg PO BID 04/13/2412/13 History atorvastatin 10 mg tablet 10 mg PO DAILY dm #30 tabs 0 05/15/24 02/23/25 Rx famotidine 40 mg tablet (Pepcid) 40 mg PO BID gerd #60 tabs 05/15/24 12/13/24 Rx losartan 50 mg tablet 50 mg PO DAILY dm/htn #30 ta bs 05/15/24 02/23/25 Rx gabapentin 300 mg capsule 300 mg PO NIGHTLY 12/13/24 0 12/13/24 History pen needle, diabetic 31 gauge x 12/13/24 12/13/24 His tory 01/19" (Sure Comfort Pen Needle) hydrocodone 5 mg-acetaminophen 300 1 tab PO Q6H PRN pa in (scale score 01/08/25 Rx mg tablet 7-10) #12 tabs dicyclomine 10 mg capsule 10 mg PO QID #7 caps 5 02/23/25 Rx ondansetron HCl 4 mg tablet 4 mg PO Q8H PRN nausea and vomiting 02/23/25 02/23/25 History sildenafil 100 mg tablet 100 mg PO DAILY PRN sexual a ctivity 02/23/25 02/23/25 History Allergies Allergy/AdvReac Type Severity Reaction Status Date / Time No Known Drug Allergies Allergy Verified 02/22/25 22:24 Exam Constitutional: abnormal general appearance, no apparent distress, abnormal body habitus (obese), no limitations and alert Vital Signs - 24 hr 02/22/25 22:00 02/22/25 23:00 02/23/25 00:00 Temperature 98.2 F 98.2 F Pulse Rate 74 69 66 Pulse Rate [Left R adial] Respiratory Rate 20 17 17 Blood Pressure 157/93 163/89 174/96 Blood Pressure [Le ft Arm] Pulse Oximetry 97 97 97 Oxygen Delivery Me thod Room Air Room Air Room Air 02/23/25 01:00 02/23/25 02:00 02/23/25 04:00 Temperature 98.2 F 97.3 F L Pulse Rate 69 69 Pulse Rate [Left R adial] 57 L Respiratory Rate 17 17 18 Blood Pressure 161/87 168/96 Blood Pressure [Le ft Arm] 141/63 Pulse Oximetry 98 95 95 Oxygen Delivery Me thod Room Air Room Air Room Air 02/23/25 04:00 02/23/25 04:08 02/23/25 04:20 Temperature 98.2 F 98.2 F Pulse Rate 69 69 Pulse Rate [Left R adial] 57 L Respiratory Rate 17 18 17 Blood Pressure 168/96 168/96 Blood Pressure [Le ft Arm] Pulse Oximetry 95 95 95 Oxygen Delivery Me thod Room Air 02/23/25 08:00 02/23/25 12:00 02/23/25 12:00 Temperature 97.5 F L 97.4 F L 97.4 F L Pulse Rate Pulse Rate [Left R adial] 81 67 67 Respiratory Rate 18 19 19 Blood Pressure Blood Pressure [Le ft Arm] 145/87 132/74 132/74 Pulse Oximetry 97 100 100 Oxygen Delivery Me thod Room Air Room Air Room Air 02/23/25 16:00 Temperature 97.5 F L Pulse Rate Pulse Rate [Left R adial] 64 Respiratory Rate 16 Blood Pressure Blood Pressure [Le ft Arm] 190/91 Pulse Oximetry 97 Oxygen Delivery Me thod Room Air HENMT: normocephalic, head/scalp atraumatic, hearing grossly normal bilaterally, oral mucous membranes abnormal (dry), oropharynx normal and dentition normal Eyes: PERRL, EOMs intact bilaterally, conjunctivae normal, no scleral icterus, papilledema noted and periorbital findings normal Neck/C-Spine: abnormal to visual inspection, trachea midline, cervical spine nontender, abnormal cervical ROM noted, supple, no meningeal signs, thyroid normal and no carotid bruits Lymph: no lymphadenopathy noted and no lymphedema noted Chest: inspection of chest normal and palpation of chest normal Respiratory: breath sounds unequal, normal respiratory effort, clear to a uscultation bilaterally, no wheezes, no rales and no retractions Cardiovascular: normal heart rate noted, regular rhythm noted, no gallop, no rub, no murmur, no JVD, no clicks and no bruits noted Gastrointestinal: abdomen abnormal to inspection, abdomen soft to palpation, tender to palpation, tender to percussion, nondistended, normoactive bowel sounds, hepatosplenomegaly noted, no masses, no pulsatile mass, no ascites and no hernia Epigastrium painful to palpation with hyperactive bowel sounds. Genitourinary: no CVA tenderness and bladder normal to palpation Back/Pelvis: spine abnormal to inspection, no thoracic spine tenderness, no lumbar spine tenderness, thoracic spine ROM abnormal and lumbar spine ROM abnormal Extremities: abnormal to inspection, normal to palpation, no tenderness, abnormal ROM noted, no joint enlargement and no deformity Neurology: asbestos abatement worker II-XII intact, no movement abnormality noted, no focal motor deficit noted, sensory deficit noted, deep tendon reflexes 2+ bilaterally, gait normal, speech normal, coordination normal, no pronator drift noted and GCS normal Psychiatry: mental status grossly normal, oriented x3, thought process normal, cooperative, affect normal, psychomotor activity normal and memory normal Feel stressed/tense/nervous/anxious/difficulty sleeping: not at all Skin: skin color normal, no rash, no lesions, no ecchymosis noted, no wounds, no lacerations, skin turgor abnormal Reports (tenting), no jaundice, no petechiae, no mottling, nails normal and alopecia noted Assessment and Plan Assessment and Plan (1) Acute pancreatitis: Qualifiers: Pancreatitis type: unspecified pancreatitis type Acute pancreatitis complication: no infection or necrosis Qualified Code(s): K85.90 - Acute pancreatitis without necrosis or infection, unspecified Code(s): K85.90 - Acute pancreatitis without necrosis or infection, unspecified (2) Hypertension: Qualifiers: Hypertension type: primary hypertension Qualified Code(s): I10 - Essential (primary) hypertension Code(s): I10 - Essential (primary) hypertension (3) Sleep apnea: Qualifiers: Sleep apnea type: unspecified type Qualified Code(s): G47.30 - Sleep apnea, unspecified Code(s): G47.30 - Sleep apnea, unspecified (4) Hypoalbuminemia: Code(s): E88.09 - Other disorders of plasma-protein metabolism, not elsewhere classified (5) GERD (gastroesophageal reflux disease): Qualifiers: Esophagitis presence: esophagitis presence not specified Qualified Code(s): K21.9 - Gastro-esophageal reflux disease without esophagitis Code(s): K21.9 - Gastro-esophageal reflux disease without esophagitis (6) Nicotine dependence, cigarettes, uncomplicated: Code(s): F17.210 - Nicotine dependence, cigarettes, uncomplicated (7) Hepatic steatosis: Code(s): K76.0 - Fatty (change of) liver, not elsewhere classified Plan 0.9% normal saline at 100 mL/h Advance diet slowly from n.p.o. to this morning tolerated clears and will advance to brat if does well at lunch Morphine 2 mg IV every 4 hours as needed for pain Incentive spirometer to bedside to help prevent pneumonia Cardiac monitoring and continuous pulse ox Daily weights Electrolyte replacement as needed Results Labs Labs: CBC 02/22/25 Range/Units 22:30 WBC 10.2 H (3.7-9.6) K/uL RBC 5.2 (4.40-5.80) M/uL Hgb 14.4 (14.0-17.4) gm/dL Hct 43.7 (41.3-50.1) % Plt Count 285 (142-355) K/uL Gran % 51.8 (49.1-73.1) % Lymph % (Auto) 30.7 (17.6-39.05) % [place] % (Auto) 12.8 H (4.5-10.7) % Eos % (Auto) 3.7 (0.0-4.0) % Baso % (Auto) 1.0 (0.0-1.3) Lymph # (Auto) 3.1 H (0.8-2.9) [place] # (Auto) 1.3 H (0.2-0.8) Eos # (Auto) 0.4 H (0.0-0.3) Baso # (Auto) 0.1 (0.0-0.1) Absolute Gran (auto) 5.3 (2.0-6.2) CMP 02/22/25 02/23/25 22:30 05:59 Sodium 140 142 Potassium 4.1 3.8 Chloride 106.0 109.0 H Carbon Dioxide 22 25 BUN 14 11 Creatinine 1.2 1.1 Glucose 174 H 140 H Calcium 8.2 L 8.0 L Liver Function 02/22/25 02/23/25 Range/Units 22:30 05:59 Total Bilirubin 0.40 0.40 (0.0-1.0) mg/dL AST 32 23 (15-37) U/L ALT 39 35 (30-65) U/L Alkaline Phosphatase 109 104 (50-136) U/L Albumin 3.3 L 3.1 L (3.4-5.0) g/dL Urine 02/23/25 02:30 Urine Color Yellow Urine Appearance Clear Ur Specific [place] 1.025 Urine Protein Trace Urine Glucose (UA) Normal Pulse Oximetry Attestation: I have reviewed the pertinent pulse oximetry results. ECG Attestation: I have reviewed the pertinent ECG results. Prior ECG tracings: available for review Imaging Imaging ordered: CT scan - abdomen and CT scan - pelvis Attestation: I have reviewed the pertinent imaging results. Radiologist's impression: Date of Service: 02/16/25 Procedure(s): CT abdomen pelvis w con Accession Number(s): [id number] cc: Lenny Waite RF MANAGER; Tyvivi Hedrick~ EXAM: CT ABDOMEN PELVIS W CON HISTORY: Abdominal pain COMPARISON: May 12, 2024 TECHNIQUE: Axial CT images of the abdomen and pelvis were obtained after the administration of IV contrast and reformatted into coronal and sagittal planes for further evaluation. Radiation dose: 1170.7 mGy-cm total DLP FINDINGS: Lung bases are clear. Stomach appears normal. Mild edema adjacent to the body of the pancreas. Status post cholecystectomy. Homogeneous enhancement of the kidneys without hydronephrosis or hydroureter. Unremarkable appearance of the urinary bladder. Imaged reproductive structures are unremarkable. Unremarkable appearance of the large and small bowel. Status post appendectomy. No pneumoperitoneum. No significant fluid collection. No adenopathy. No acute osseous abnormality. IMPRESSION: Mild edema adjacent to the body of the pancreas could represent acute pancreatitis. Recommend correlation with clinical lab values.
[2025-02-24 06:53] LABS: Basophils #(Absolute) Auto 0.1 (0.0-0.1); Basophils%(Percent) Auto 0.9 (0.0-1.3); Eosinophils#(Absolute)Auto 0.4 (0.0-0.3); Eosinophils%(Percent) Auto 4.6 % (0.0-4.0); Granulocytes % - Auto 55.6 % (49.1-73.1); Granulocytes#(Absolute)- Auto 4.5 (2.0-6.2); Mean Corpuscular Volume 81.7 fl (81.9-96.5); Monocytes #(Absolute)- Auto 0.9 (0.2-0.8); Monocytes %(Percent)- Auto 11.1 % (4.5-10.7); Platelet Count 279 K/uL (142-355); White Blood Count 8.1 K/uL (3.7-9.6)
[2025-02-24 07:41] LABS: Potassium 3.6 mmol/L (3.6-5.2)
[2025-02-24] MEDS: ATORVASTATIN CALCIUM 10 MG TABLET PO SCH (09:38)
[2025-02-24] MEDS: LOSARTAN POTASSIUM 50 MG TABLET PO SCH (09:38)
--- NOTE | 2025-02-24 13:56 | Progress Note ---
Progress Note: Subjective Subjective Interval history: patient required 3 doses of morphine last pm for abdominal pain no emesis noted after supper. patient remains afebrile. Exam Constitutional: normal general appearance, no apparent distress, abnormal body habitus (obese), no limitations and alert Vital Signs - 24 hr 02/23/25 16:00 02/23/25 20:00 02/24/25 00:00 Temperature 97.5 F L 97.8 F 97.6 F Pulse Rate [Left R adial] 64 72 Respiratory Rate 16 19 17 Blood Pressure Blood Pressure [Le ft Arm] 190/91 161/88 163/79 Pulse Oximetry 97 99 100 Oxygen Delivery Me thod Room Air Room Air Room Air 02/24/25 04:00 02/24/25 08:00 02/24/25 09:38 Temperature 98.1 F 97.4 F L Pulse Rate [Left R adial] 66 75 Respiratory Rate 20 19 Blood Pressure 160/97 Blood Pressure [Le ft Arm] 168/59 160/97 Pulse Oximetry 98 97 Oxygen Delivery Ok thod Room Air Room Air 02/24/25 12:00 02/24/25 13:00 Temperature 97.4 F L 97.4 F L Pulse Rate [Left R adial] 75 75 Respiratory Rate 20 20 Blood Pressure Blood Pressure [Le ft Arm] 181/93 181/93 Pulse Oximetry 97 97 Oxygen Delivery Ok thod Room Air Room Air HENMT: normocephalic, head/scalp atraumatic, hearing grossly normal bilaterally, oral mucous membranes normal, oropharynx normal and dentition normal Eyes: PERRL, EOMs intact bilaterally, conjunctivae normal, no scleral icterus, papilledema noted and periorbital findings normal Neck/C-Spine: abnormal to visual inspection, trachea midline, cervical spine nontender, abnormal cervical ROM noted, supple, no meningeal signs, thyroid normal and no carotid bruits Lymph: no lymphadenopathy noted and no lymphedema noted Chest: inspection of chest normal and palpation of chest normal Respiratory: breath sounds unequal, normal respiratory effort, clear to auscultation bilaterally, no wheezes, no rales and no retractions Cardiovascular: normal heart rate noted, regular rhythm noted, no gallop, no rub, no murmur, no JVD, no clicks and no bruits noted Gastrointestinal: abdomen abnormal to inspection, abdomen soft to palpation, tender to palpation, nontender to percussion, nondistended, normoactive bowel sounds, hepatosplenomegaly noted, no masses, no pulsatile mass, no ascites and no hernia Epigastrium painful to palpation with hyperactive bowel sounds. Genitourinary: no CVA tenderness and bladder normal to palpation Back/Pelvis: spine abnormal to inspection, no thoracic spine tenderness, no lumbar spine tenderness, thoracic spine ROM abnormal and lumbar spine ROM abnormal Extremities: abnormal to inspection, normal to palpation, no tenderness, abnormal ROM noted, no joint enlargement and no deformity Neurology: alarm operator II-XII intact, no movement abnormality noted, no focal motor deficit noted, sensory deficit noted, deep tendon reflexes 2+ bilaterally, gait normal, speech normal, coordination normal, no pronator drift noted and GCS normal Psychiatry: Mental Status Exam documented within this Exam's Psych section mental status grossly normal, oriented x3, thought process normal, cooperative, affect normal, psychomotor activity normal and memory normal Feel stressed/tense/nervous/anxious/difficulty sleeping: not at all Skin: skin color normal, no rash, no lesions, no ecchymosis noted, no wounds, no lacerations, skin turgor normal, no jaundice, no petechiae, no mottling, nails normal and alopecia noted Progress Note: Objective Labs Labs: CBC 02/24/25 Range/Units 05:55 WBC 8.1 (3.7-9.6) K/uL RBC 5.3 (4.40-5.80) M/uL Hgb 14.4 (14.0-17.4) gm/dL Hct 43.0 (41.3-50.1) % Plt Count 279 (142-355) K/uL Gran % 55.6 (49.1-73.1) % Lymph % (Auto) 27.8 (17.6-39.05) % [place] % (Auto) 11.1 H (4.5-10.7) % Eos % (Auto) 4.6 H (0.0-4.0) % Baso % (Auto) 0.9 (0.0-1.3) Lymph # (Auto) 2.2 (0.8-2.9) [place] # (Auto) 0.9 H (0.2-0.8) Eos # (Auto) 0.4 H (0.0-0.3) Baso # (Auto) 0.1 (0.0-0.1) Absolute Gran (auto) 4.5 (2.0-6.2) CMP 02/24/25 05:55 Sodium 138 Potassium 3.6 Chloride 105.0 Carbon Dioxide 26 BUN 6 L Creatinine 1.0 Glucose 150 H Calcium 8.5 Liver Function 02/24/25 Range/Units 05:55 Total Bilirubin 0.47 (0.0-1.0) mg/dL AST 27 (15-37) U/L ALT 37 (30-65) U/L Alkaline Phosphatase 96 (50-136) U/L Albumin 3.1 L (3.4-5.0) g/dL Urine 02/23/25 02:30 Urine Color Yellow Urine Appearance Clear Ur Specific [place] 1.025 Urine Protein Trace Urine Glucose (UA) Normal Progress Note: A&P Assessment and Plan (1) Acute pancreatitis: Qualifiers: Acute pancreatitis complication: no infection or necrosis Pancreatitis type: unspecified pancreatitis type Qualified Code(s): K85.90 - Acute pancreatitis without necrosis or infection, unspecified (2) Hypertension: Qualifiers: Hypertension type: primary hypertension Qualified Code(s): I10 - Essential (primary) hypertension (3) Sleep apnea: Qualifiers: Sleep apnea type: unspecified type Qualified Code(s): G47.30 - Sleep apnea, unspecified (4) Hypoalbuminemia: (5) GERD (gastroesophageal reflux disease): Qualifiers: Esophagitis presence: esophagitis presence not specified Qualified Code(s): K21.9 - Gastro-esophageal reflux disease without esophagitis (6) Nicotine dependence, cigarettes, uncomplicated: (7) Hepatic steatosis: Plan 0.9% normal saline at 100 mL/h Advance diet slowly from n.p.o. to this morning tolerated clears and will advance to brat if does well at lunch Morphine 2 mg IV every 4 hours as needed for pain Incentive spirometer to bedside to help prevent pneumonia Cardiac monitoring and continuous pulse ox Daily weights Electrolyte replacement as needed Fall Risk Details Barba Fall Scale Risk Level: Moderate Fall Risk Current Medications: Current Medications Acetaminophen (Acetaminophen 500 Mg Tablet) 1,000 mg PO Q6H PRN PRN Reason: MILD PAIN SCALE 1-4/fever Last Admin: 02/23/25 16:00 Dose: 1,000 mg Atorvastatin Calcium (Atorvastatin Calcium 10 Mg Tablet) 10 mg PO DAILY BETITO Last Admin: 02/24/25 09:38 Dose: 10 mg Docusate Sodium (Docusate Sodium 100 Mg Capsule) 100 mg PO DAILY PRN PRN Reason: Constipation Enoxaparin Sodium (Enoxaparin Sodium 40 Mg/0.4 Ml Syringe) 40 mg SUBQ DAILY [facility] Last Admin: 02/24/25 09:38 Dose: 40 mg Sodium Chloride (Sodium Chloride) 1,000 mls @ 150 mls/hr IV CONT [facility] Last Admin: 02/24/25 12:20 Dose: 150 mls/hr Insulin Human Regular (Insulin Regular, Human 100 Unit/Ml) 0 unit SUBQ ACHS PRN; Protocol PRN Reason: hyperglycemia Last Admin: 02/23/25 20:47 Dose: 8 unit Losartan Potassium (Losartan Potassium 50 Mg Tablet) 50 mg PO DAILY [facility] Last Admin: 02/24/25 09:38 Dose: 50 mg Magnesium Hydroxide (Magnesium, Aluminum Hydroxide 30 Ml Oral.Susp) 30 ml PO DAILY PRN PRN Reason: Constipation Morphine Sulfate (Morphine Sulfate 2 Mg/Ml Cartridge) 2 mg IV Q4H PRN PRN Reason: Severe Pain SCALE 8-10 Last Admin: 02/24/25 06:37 Dose: 2 mg Ondansetron HCl (Ondansetron Hcl/Pf 4 Mg/2 Ml Vial) 4 mg INJ Q6H PRN PRN Reason: Nausea And Vomiting Pantoprazole Sodium (Pantoprazole Sodium 40 Mg Tablet.Dr) 40 mg PO DAILY [facility] Last Admin: 02/24/25 09:38 Dose: 40 mg Time Spent With Patient Time: Total time spent is greater than 50% in coordination of care (as documented) at patient's floor/unit and/or counseling patient: Time with patient: greater than 35 minutes
[2025-02-25 08:14] VITALS: RESP 16; TEMP 98.3
[2025-02-25 11:54] VITALS: BP 170/83; PULSE 70
[2025-02-25 14:10] LABS: Basophils #(Absolute) Auto 0.1 (0.0-0.1); Basophils%(Percent) Auto 1.4 (0.0-1.3); Eosinophils#(Absolute)Auto 0.3 (0.0-0.3); Eosinophils%(Percent) Auto 3.7 % (0.0-4.0); Granulocytes % - Auto 54.5 % (49.1-73.1); Hematocrit 45.4 % (41.3-50.1); Mean Corpuscular Volume 82.1 fl (81.9-96.5); Monocytes #(Absolute)- Auto 0.8 (0.2-0.8); Monocytes %(Percent)- Auto 10.6 % (4.5-10.7); Platelet Count 297 K/uL (142-355); White Blood Count 7.3 K/uL (3.7-9.6)
[2025-02-25 14:37] LABS: Potassium 3.9 mmol/L (3.6-5.2)
--- NOTE | 2025-02-25 14:54 | Discharge Summary ---
DS: Providers Provider Date of admission: 02/23/25 03:03 Primary care physician: Ty Hedrick MD Admitting clinician: Domitila Palma Attending physician on admission: Domitila Palma Attending physician on discharge: Domitila Palma Discharging clinician: Domitila Palma Anticipated date of discharge: 02/25/25 DS: Diagnosis Discharge Diagnosis (1) Acute pancreatitis: Qualifiers: Acute pancreatitis complication: no infection or necrosis Pancreatitis type: unspecified pancreatitis type Qualified Code(s): K85.90 - Acute pancreatitis without necrosis or infection, unspecified (2) Hypertension: Qualifiers: Hypertension type: primary hypertension Qualified Code(s): I10 - Essential (primary) hypertension (3) Sleep apnea: Qualifiers: Sleep apnea type: unspecified type Qualified Code(s): G47.30 - Sleep apnea, unspecified (4) Hypoalbuminemia: (5) GERD (gastroesophageal reflux disease): Qualifiers: Esophagitis presence: esophagitis presence not specified Qualified Code(s): K21.9 - Gastro-esophageal reflux disease without esophagitis (6) Nicotine dependence, cigarettes, uncomplicated: (7) Hepatic steatosis: DS: Summary Hospital Course Hospital Course: patient improved with fluids and morphine controlled pain and zofran helped with the nausea and patient tolerated advancing diet after a 16 hour bowel rest. electrolytes corrected per protocol Status at Discharge Functional status at discharge: independent ambulation Overall status at discharge: patient is not back to baseline Time Spent with Patient Time attestation: Total time spent providing and/or coordinating discharge services:34 Exam Constitutional: normal general appearance, no apparent distress, abnormal body habitus (obese), no limitations and alert Vital Signs - 24 hr 02/24/25 17:00 02/24/25 20:18 02/24/25 23:43 Temperature 98.3 F 98.6 F 97.4 F L Pulse Rate [Left R adial] 64 74 73 Respiratory Rate 16 17 19 Blood Pressure Blood Pressure [Le ft Arm] 181/98 183/96 171/84 Pulse Oximetry 99 97 100 Oxygen Delivery Me thod Room Air Room Air Room Air 02/25/25 03:53 02/25/25 08:00 02/25/25 08:14 Temperature 98.2 F 98.3 F Pulse Rate [Left R adial] 65 71 Respiratory Rate 19 16 Blood Pressure 171/88 Blood Pressure [Le ft Arm] 148/78 171/88 Pulse Oximetry 100 98 Oxygen Delivery Me thod Room Air Room Air 02/25/25 11:53 Temperature 98.3 F Pulse Rate [Left R adial] 70 Respiratory Rate 16 Blood Pressure Blood Pressure [Le ft Arm] 170/83 Pulse Oximetry 98 Oxygen Delivery Me thod Room Air HENMT: normocephalic, head/scalp atraumatic, hearing grossly normal bilaterally, oral mucous membranes normal, oropharynx normal and dentition normal Eyes: PERRL, EOMs intact bilaterally, conjunctivae normal, no scleral icterus, papilledema noted and periorbital findings normal Neck/C-Spine: abnormal to visual inspection, trachea midline, cervical spine nontender, abnormal cervical ROM noted, supple, no meningeal signs, thyroid normal and no carotid bruits Lymph: no lymphadenopathy noted and no lymphedema noted Chest: inspection of chest normal and palpation of chest normal Respiratory: breath sounds unequal, normal respiratory effort, clear to auscultation bilaterally, no wheezes, no rales and no retractions Cardiovascular: normal heart rate noted, regular rhythm noted, no gallop, no rub, no murmur, no JVD, no clicks and no bruits noted Gastrointestinal: abdomen abnormal to inspection, abdomen soft to palpation, nontender to palpation, nontender to percussion, nondistended, normoactive bowel sounds, hepatosplenomegaly noted, no masses, no pulsatile mass, no ascites and no hernia Genitourinary: no CVA tenderness and bladder normal to palpation Back/Pelvis: spine abnormal to inspection, no thoracic spine tenderness, no lumbar spine tenderness, thoracic spine ROM abnormal and lumbar spine ROM abnormal Extremities: abnormal to inspection, normal to palpation, no tenderness, abnormal ROM noted, no joint enlargement and no deformity Neurology: carpentry specialist II-XII intact, no movement abnormality noted, no focal motor deficit noted, sensory deficit noted, deep tendon reflexes 2+ bilaterally, gait normal, speech normal, coordination normal, no pronator drift noted and GCS normal Psychiatry: Mental Status Exam documented within this Exam's Psych section mental status grossly normal, oriented x3, thought process normal, cooperative, affect normal, psychomotor activity normal and memory normal Feel stressed/tense/nervous/anxious/difficulty sleeping: not at all Skin: skin color normal, no rash, no lesions, no ecchymosis noted, no wounds, no lacerations, skin turgor normal, no jaundice, no petechiae, no mottling, nails normal and alopecia noted DS: Data Data Completed and Pending Labs on day of discharge: Labs from last 24 hours 02/25/25 13:55 WBC 7.3 RBC 5.5 Hgb 15.0 Hct 45.4 MCV 82.1 MCH 27.2 L MCHC 33.1 RDW 15.1 H Plt Count 297 MPV 8.1 Gran % 54.5 Lymph % (Auto) 29.8 Crowley % (Auto) 10.6 Eos % (Auto) 3.7 Baso % (Auto) 1.4 H Lymph # (Auto) 2.2 Crowley # (Auto) 0.8 Eos # (Auto) 0.3 Baso # (Auto) 0.1 Absolute Gran (auto) 4.0 Sodium 136 Potassium 3.9 Chloride 101.0 Carbon Dioxide 27 Anion Gap 8.0 BUN 8 Creatinine 1.2 Estimated GFR 75.1 Glucose 293 H Calcium 8.6 Phosphorus 2.4 L Magnesium 2.1 Total Bilirubin 0.38 AST 20 ALT 39 Alkaline Phosphatase 107 Total Protein 8.2 Albumin 3.3 L Lipase 121.0 H Discharge Plan Discharge Disposition: Home, Self-Care Condition: Improved Discharge Medications: Continued losartan 50 mg tablet 50 mg PO DAILY Qty: 30 0RF atorvastatin 10 mg tablet 10 mg PO DAILY Qty: 30 0RF famotidine [Pepcid] 40 mg tablet 40 mg PO BID Qty: 60 0RF sildenafil 100 mg tablet 100 mg PO DAILY PRN (Reason: sexual activity) Patient Comments: TAKE 1 TABLET BY MOUTH ONCE DAILY NEEDED ondansetron HCl 4 mg tablet 4 mg PO Q8H PRN (Reason: nausea and vomiting) Patient Comments: TAKE ONE TABLET BY MOUTH EVERY 8 HOURS NEEDED FOR FOUR DAYS glipizide 10 mg tablet 10 mg PO BIDWM Patient Comments: TAKE ONE TABLET BY MOUTH TWICE DAILY insulin glargine-yfgn 100 unit/mL (3 mL) insulin pen 40 unit SUBCUT DAILY Patient Comments: INJECT 40 UNITS SUBCUTANEOUSLY DAILY gabapentin 300 mg capsule 300 mg PO NIGHTLY Patient Comments: TAKE ONE CAPSULE BY MOUTH AT BEDTIME (DME) pen needle, diabetic [Sure Comfort Pen Needle] 31 gauge x 5/16" needle MISCELLANEOUS Patient Comments: USE daily hydrocodone-acetaminophen 5-300 mg tablet 1 tab PO Q6H PRN (Reason: pain (scale score 7-10)) Qty: 12 0RF dicyclomine 10 mg capsule 10 mg PO QID Qty: 7 0RF Discontinued metformin 850 mg tablet 850 mg PO BID Patient Comments: TAKE ONE TABLET BY MOUTH TWICE DAILY WITH A MEAL Discharge Orders: Discharge Order (Routine); Ordered 02/25/25 Ordered By: Domitila Palma Activity: increase activity as tolerated Diet: advance to your usual diet Diet Detail: Needs to increase water and 0-calorie electrolyte drinks in his daily intake give examples of pancreatic diet Interventions: Discharge Assessment Last Done: 02/25/25 15:02 MED/SURG & ICU Observation Charge Sheet Last Done: 02/25/25 15:00 Patient Instructions: Pancreatitis (GEN) Activity Restrictions/Additional Instructions: Patient is to stay hydrated so increase his water and 0-calorie electrolyte drinks in his daily diet Follow-up GI medicine for evaluation of fatty liver and other causes of pancreatitis Needs to follow with his PCP in this coming week to monitor how he is improving and make sure referral to GI medicine occurs Work on daily exercise and weight loss programs safe with the pancreas Forms: Portal/Health Info Access Inst Follow-Ups: Ty Hedrick MD [Primary Care Provider, Medical] Discharge Date/Time: 02/25/25 15:22
[2025-02-25] MEDS: POTASSIUM PHOSPHATE 500 MG TABLET.SOL PO ONE ×2 (15:15)
== END 2025-02-25 15:22 | disposition home or self-care (01) ==
LOC: ED 21:49 → MS 21:49
PROVIDERS: ADMIT Family Medicine; ATTEND Family Medicine